=== PATIENT | female | born 1995 | race Caucasian/White ===

== ENCOUNTER → 2016-06-21 | Outpatient (CLI) | payer OTHER ==
[2016-06-21 16:31] LABS: Basophils % (A) 0 %; CH 32.5; CHCM 34.1; Eosinophils % (A) 1 %; HCT 40.1 % (34.0-46.0); HDW 2.83; HGB 13.3 gm/dL (11.4-16.0); Luc # (Auto) 0.09; Luc % (Auto) 2; Lymphocytes # (A) 1.3 k/uL (1.0-4.8); Lymphocytes % (A) 28 %; MCH 31.7 pg (25.0-35.0); MCHC 33.1 g/dL (31.0-37.0); MCV 95.7 fL (80.0-100.0); Monocytes # (A) 0.2 k/uL (0-1.0); Monocytes % (A) 4 %; Neutrophils # (A) 3.1 k/uL (1.3-7.7); Neutrophils % (A) 65 %; RBC 4.19 m/uL (3.80-5.40); RDW 12.5 % (11.5-15.5); WBC 4.7 k/uL (4.0-11.0); WBC (Perox) 5.02
[2016-06-21 16:43] LABS: ALT 28 U/L (9-52); AST 23 U/L (14-36); Alkaline Phosphatase 52 U/L (38-126); Anion Gap 11 mmol/L; Blood Urea Nitrogen 11 mg/dL (7-17); Calcium 9.6 mg/dL (8.4-10.2); Carbon Dioxide 27 mmol/L (22-30); Chloride 104 mmol/L (98-107); Cholesterol 197 mg/dL (<200); Glucose 85 mg/dL (74-99); HDL Cholesterol 74 mg/dL (40-60); Non-African American GFR(MDRD) >60 (>60 ml/min/1.73 sqM); Potassium 4.2 mmol/L (3.5-5.1); Sodium 142 mmol/L (137-145); Total Bilirubin 0.8 mg/dL (0.2-1.3); Total Protein 7.7 g/dL (6.3-8.2); Triglycerides 108 mg/dL (<150)
[2016-06-21 17:16] LABS: Hepatitis B Core IgM Index 0.07
[2016-06-21 17:27] LABS: Hepatitis C Virus IgG Index 0.01
[2016-06-21 17:28] LABS: Hepatitis C Virus IgG Ab Negative (Negative)
[2016-06-23 04:16] LABS: HIV-1/HIV-2 Ab Screen NONREAC (NON REAC)
[2016-06-23 12:46] LABS: Treponemal Ab Non-Reactive (Non-Reactive)
[2016-06-23 14:22] LABS: HSV II IgG Interp NEGATIVE (NEGATIVE)
[2016-06-23 14:58] LABS: HSV I IgG Interp Equivocal (NEGATIVE)
== END ==
LOC: LABMAIN 13:03
PROVIDERS: ATTEND Family Medicine
DX: E55.9 Vitamin D deficiency, unspecified (principal); E78.5 Hyperlipidemia, unspecified; R53.81 Other malaise; Z13.220 Encounter for screening for lipoid disorders; Z20.2 Contact with and (suspected) exposure to infections with a predominantly sexual mode of transmission
CPT/HCPCS: 36415; 80053; 80061; 80074; 82306; 84439; 84443; 85025; 86694; 86695; 86696; 86780; 87389